=== PATIENT | female | born 1960 | race Caucasian/White ===

== ENCOUNTER 2018-10-24 15:20 | Outpatient (REF) | payer MEDICAID, SELFPAY ==
--- NOTE | 2018-10-24 10:30 | PAPFT_PTH ---
PATIENT: Niharika Corea LOC: [facility] U#:[id number] AGE/SX: 58/F ROOM: RE10/24/[address]: Nino Santos MD : [id number] BED: DIS: 10/24/2018 SPEC #: [id number] RECD: 10/25/18 12:49 STATUS: PERICO REVlad #: [id number] AYAZ: 10/24/18 10:[address]: Nino Santos DEPT: [facility] Cytology RECD BY: Dee Dunham Tissues: 1 - CX/ENDOCX FOR PAP SMEARS Procedures: PAP THIN PREP/UVM Screening HPV DNA PROBE Comments: [id number]
== END 2018-10-24 15:40 ==
LOC: LBN 15:20
PROVIDERS: PCP Family Medicine; Visit Provider Family Medicine
DX: Z12.4 Encounter for screening for malignant neoplasm of cervix (principal); Z11.51 Encounter for screening for human papillomavirus (HPV)
CPT/HCPCS: 88142; 87624

== ENCOUNTER 2018-11-08 00:37 | Outpatient (CLI) | payer MEDICAID, SELFPAY ==
--- NOTE | 2018-11-08 07:30 | DI.MAMMO_ITS ---
SYMPTOM/DIAGNOSIS: SCREENING Z12.31 MAMMOGRAM Mammograms were interpreted according to the usual protocol including computer analysis with CAD system, tomosynthesis and C view imaging. The breasts are radiodense. There is no evidence of a mass or suspicious calcification. There has been no significant interval change when compared with the previous. SUMMARY: Category 1 examination. Breast density Category A. MQSA ASSESSMENT OF FINDINGS: Negative. Category 1. Patient will receive a letter notifying them of these results. BI-RAD category A. The breasts are almost entirely fatty.
[2018-11-08 08:20] LABS: HCT 38.5 % (36.0-46.0); HGB 12.8 g/dL (12.0-15.5); Mean Corp. HGB Concentration 33.2 g/dL (32.0-36.0); Mean Corpuscular Hemoglobin 30.8 pg (27.0-33.0); Mean Corpuscular Volume 92.5 fL (80-95); Mean Platelet Volume 9.6 fL (8.0-11.0); Platelet Count 163 x1000/uL (130-400); RBC 4.16 m/cumm (4.00-5.20); RBC Distribution Width 14.9 % (11.7-14.6); White Blood Cell Count 4.77 k/cumm (4.4-10.8)
[2018-11-08 09:44] LABS: ALT 31 U/L (12-78); AST 22 U/L (15-37); Albumin 3.9 g/dL (3.4-5.0); Alkaline Phosphatase 125 U/L (46-116); Anion Gap 8.2 mmol/L (3-11); BUN 15 mg/dL (7-18); Bilirubin, Total 0.7 mg/dL (0.2-1.0); CO2 26.8 mmol/L (21.0-32.0); CREATININE 0.63 mg/dL (0.55-1.02); Calcium 8.5 mg/dL (8.5-10.1); Chloride 105 mmol/L (98-107); Glucose 102 mg/dL (70-100); Potassium 4.2 mmol/L (3.5-5.1); Sodium 140 mmol/L (136-145); Total Protein 6.9 g/dL (6.4-8.2)
== END 2018-11-08 00:57 ==
PROVIDERS: PCP Family Medicine; Visit Provider Family Medicine
DX: Z12.31 Encounter for screening mammogram for malignant neoplasm of breast (principal); Z01.818 Encounter for other preprocedural examination; Z00.00 Encounter for general adult medical examination without abnormal findings
CPT/HCPCS: 36415; 77063; 77067; 80053; 85027

== ENCOUNTER 2018-12-07 07:09 | Day surgery (SDC) | payer MEDICAID, SELFPAY ==
[2018-12-07 07:20] VITALS: BP 128/88; PULSE 91; RESP 18; TEMP 36; O2SAT 97
[2018-12-07 07:52] VITALS: BP 128/88; PULSE 91; RESP 18; TEMP 36; O2SAT 97
[2018-12-07] MEDS: Lactated Ringers 1,000 ML 80 ML IV (08:03)
--- NOTE | 2018-12-07 08:49 | W.PM.DSUDISC ---
Discharge Plan Disposition Patient Disposition: HOME Condition: Good Discharge Details Attending Provider: Sandra Foley Home Meds and New Rx's Prescriptions: Continued metoprolol tartrate 25 MG tablet 25 mg PO BID Qty: 180 RF: 4 trazodone 50 mg tablet 25 - 50 mg PO HS PRN (Reason: insomnia) Qty: 60 RF: 11 aspirin [Aspir-81] 81 MG tablet,delayed release (DR/EC) 81 mg PO DAILY Qty: 90 RF: 0 Women's Daily Formula 1 EACH tablet 1 ea PO DAILY RF: 0 Discontinued polyethylene glycol 3350 17 gram/dose powder 238 g PO ONCE Qty: 238 RF: 0 bisacodyl [Dulcolax (bisacodyl)] 5 mg tablet,delayed release (DR/EC) 5 mg PO ONCE Qty: 4 RF: 0 Discharge Instructions Additional Instructions: Your colonoscopy showed a few scattered diverticular pockets No polyps were found Plan for a follow up colonoscopy in 5 years due to family history Activity:: Activity as Tolerated Diet:: As Tolerated Discharge Orders Discharge Orders: Discharge Order (Routine); Ordered 12/07/18 Ordered By: Sandra Foley DS: Diagnosis Discharge Diagnosis (1) Diverticulosis: Start date: 12/07/18 Start time: 08:50 Status: Acute
[2018-12-07 09:19] VITALS: BP 105/67; PULSE 74; RESP 16; TEMP 36; O2SAT 99
--- NOTE | 2018-12-07 11:13 | COLE_ITS ---
DATE OF PROCEDURE: December 07, 2018 PREOPERATIVE DIAGNOSIS: Family history of colon cancer. POSTOPERATIVE DIAGNOSIS: Mild diverticulosis. PROCEDURE: Colonoscopy. SURGEON: Sandra Foley M.D. ANESTHESIA: General. INDICATIONS: This is a 58-year-old woman whose brother was treated for rectal cancer. Her last colo noscopy in 2013 showed diverticulosis. She is asymptomatic. PROCEDURE: The patient was placed in the left Mckenna' position. Propofol was titrated to sedation. D igital rectal examination revealed no abnormalities. The scope was advanced to the cecum without dif ficulty. Her prep was excellent. The ileum was briefly intubated and was normal. The scope was slo wly withdrawn with no abnormalities seen within the ascending, transverse or descending colon. The a nastomosis was visualized and was widely patent. There were a few scattered pockets of diverticulosi s proximal to this, but very minimal change, as she is status post sigmoid resection. The rectum was normal, including on retroflex view. She tolerated the procedure well and was stable to recovery. With her family history of rectal cancer, she will need a follow-up colonoscopy again in five years. cc: Nino Santos M.D.
== END 2018-12-07 09:55 | disposition home or self-care (01) ==
PROVIDERS: Visit Provider Surgery
PROC: 0DJD8ZZ Inspection of Lower Intestinal Tract, Via Natural or Artificial Opening Endoscopic (ICD-10-PCS; CPT 45378; principal; 2018-12-07 08:30)
DX: Z12.11 Encounter for screening for malignant neoplasm of colon (principal); K57.30 Diverticulosis of large intestine without perforation or abscess without bleeding; Z90.49 Acquired absence of other specified parts of digestive tract; Z80.0 Family history of malignant neoplasm of digestive organs
CPT/HCPCS: 45378

== ENCOUNTER 2019-04-24 13:43 | Outpatient (CLI) | payer MEDICAID, SELFPAY ==
--- NOTE | 2019-04-24 14:07 | DI.RAD_ITS ---
EXAM: XR STANDING ALIGNMENT CLINICAL HISTORY: left knee DJD; pre-operative planning COMPARISON: No exams were available for comparison FINDINGS: Views of the lower extremities were obtained for standing alignment and leg length determination. The re are mild degenerative changes of both hips. There are moderate to severe degenerative changes of the medial tibiofemoral joints bilaterally. 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
== END 2019-04-24 14:03 ==
PROVIDERS: PCP Family Medicine; Visit Provider Physician Assistant
DX: M25.562 Pain in left knee (principal); M17.0 Bilateral primary osteoarthritis of knee; M16.0 Bilateral primary osteoarthritis of hip
CPT/HCPCS: 77073

== ENCOUNTER 2019-04-24 13:58 | Outpatient (CLI) | payer MEDICAID, SELFPAY ==
--- NOTE | 2019-04-24 13:20 | W.PREOPHP ---
Assessment and Plan Assessment and plan (1) Primary osteoarthritis of left knee: Status: Chronic Assessment and plan: Plan: Standing alignment films were ordered for pre-operative planning. Educated patient on surgery covering surgical technique, recovery process, benefits and risks including but not limited to risk of infection, blood clot, damage to soft tissue/blood vessels/nerves in detail. After discussion patient gives verbal understanding of risks and elects to proceed with scheduling surgery. Patient had opportunity to have questions answered to their satisfaction. They will contact office if issues arise. Patient will continue to be scheduled for left TKA with Dr. Krishnan. History of Present Illness Narrative: Ms. Corea is a 59-year-old female who presents to clinic for pre-operative exam for scheduled left TKA. Patient has been a longtime patient of Dr. Bueno; she is status post left knee arthroscopy with partial meniscectomy in September 2015. Since that time patient's left knee pain has been treated with Synvisc as well as Depo-Medrol injections. Patient reports initially Synvisc injections prior to get relief but more recently were unable to provide any symptomatic improvement. Patient was then transition to steroid injections every 3 months. Patient reports injections typically help for about 2-1/2 months. Unfortunately, patient continues to have pain interferes with her activity. She describes pain as intermittent discomfort located along the lateral and medial aspect of her knee as well as beneath her patella. Pain is aggravated with prolonged weight bearing activity including standing, ascending as well as descending stairs. In addition to pain she reports stiffness and a clicking sensation within the knee. Patient denies any recent giving out, numbness or tingling. Denies any recent falls or injury. 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 Pertinent Surgical Information Patient reports she is blood type O-. Denies past medical history of: Hypertension, stroke, recent cardiac issues, angina, asthma, COPD, sleep apnea, renal issues, liver issues, hepatitis, gastrointestinal ulcers, hyperlipidemia, bleeding disorders, seizures, migraines, anxiety, depression, diabetes, autoimmune disorders, thyroid issues. Denies prior complications from surgery or anesthesia. Review of Systems Constitutional Constitutional: Denies fever(s), Denies frequent falls and Denies headache(s) Eyes Eyes: Reports change in vision (recent vision change in her right eye; has seen [place] after this change) ENT Ears, Nose, Mouth, and Throat: Denies dizziness, Denies ear discharge, Denies headache(s), Denies epistaxis, Denies nasal discharge and Denies sore throat Cardiovascular Cardiovascular: Denies chest pain, Denies rapid heart rate, Denies irregular heart rhythm, Denies palpitations, Denies dyspnea, Denies dyspnea on exertion, Denies orthopnea, Denies paroxysmal nocturnal dyspnea and Denies slow heart rate Respiratory Respiratory: Denies cough, Denies dyspnea, Denies dyspnea on exertion and Denies wheezing Gastrointestinal Gastrointestinal: Denies abdominal pain, Denies melena, Denies hematochezia, Denies constipation, Denies diarrhea, Denies nausea and Denies vomiting Genitourinary Genitourinary: Denies hematuria, Denies dysuria and Denies urinary urgency Musculoskeletal Musculoskeletal: Reports as per HPI, Denies numbness and Denies tingling Neurologic Neurologic: Denies dizziness, Denies frequent falls, Denies headache(s), Denies numbness and Denies tingling Psychiatric Psychiatric: Denies anxiety and Denies depression Endocrine Endocrine: Denies palpitations Allergic/Immunologic Allergic/Immunologic: Denies wheezing [facility] Medical History (Updated 04/24/19 @ 13:28 by Merline Dawn) Chest pain (Resolved 04/19/13) [facility] 04/10 palpitations 06/26/13; [facility]' NEG STRESS TEST Chest pressure (Resolved) Diverticulitis large intestine w/o perforation or abscess w/bleeding (Acute 04/05/11) 04/08 RECURRENT, SIGMOID RESECTION Diverticulosis (Chronic) Family history of breast cancer in sister (Inactive 10/24/17) Family history of colon cancer (Inactive 06/27/14) brother, rectal cancer in his 50's Primary osteoarthritis of left knee (Chronic) Qcyvr-Pujkbwool-Kcygt pattern (Acute) Ablation 1991 Surgical History (Updated 04/24/19 @ 13:28 by Merline Dawn) Appendectomy Colectomy (04/05/11) H/O arthroscopy of left knee (Acute) History of bilateral ligation of fallopian tubes (Inactive) Ligation of fallopian tube Sigmoidoscopy (04/05/11) STRESS TEST (06/26/13) [facility]; NEGATIVE Family History Mother , 52 Lung cancer Father No problems noted. Sister Breast cancer Cervical cancer Brother , 59 Colon cancer Maternal Grandfather , 80+ TB (tuberculosis) Lung cancer Paternal Grandfather No problems noted. Maternal Grandmother , 80+ Diabetes Cancer Paternal Grandmother Lung cancer Son No problems noted. Son No problems noted. Son No problems noted. 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 - [employer] Pets and animals: Yes Pets and animals: dog(s) Sexually active: Yes Do you think of yourself as: straight/heterosexual Current gender identity: female Other: - Francisco J What is your relationship status?: How often do you talk on the phone with friends or family?: three or more times per week How often do you get together with friends or relatives?: three or more times per week How often do you attend jew or gnosticist services?: 4 or more times per year Do you belong to any clubs or organized social groups?: yes Panel score (0-1 are the most socially isolated patients): 4 What type of physical activity do you participate in: walking Duration: 15-30 minutes/day Frequency: 1-2 times per week Elizabeth/Gnosticism: Jehovah'S Witness Special elizabeth needs: No Seatbelt use: always Helmet use: Yes Helmet use: always Drive intox or ride w/intox sanitation truck driver: No Do you feel safe at home: Yes Do you feel safe in your relationship?: Yes Meds Home Medications and Allergies Home Medications Medication Instructions Recorded Confirmed Type trazodone 50 mg tablet 25 - 50 mg PO HS PRN #60 tab 08/28/18 04/24/19 Rx Allergies Allergy/AdvReac Type Severity Reaction Status Date / Time No Known Allergies Allergy Unverified 04/24/19 13:33 Exam Const General: cooperative and no acute distress [facility] Head: normal to inspection, normocephalic and atraumatic Ears: external ears normal General nose exam: external nose normal and no nasal discharge Face and sinus: face symmetric Mouth: oral mucosae normal, lip normal, tongue normal and moist mucous membranes Teeth and gingiva: dentition normal Throat: posterior oropharynx normal Eyes General: appearance normal, both eyes and all related structures Pupils: PERRL EOM: EOM intact bilaterally Neck Neck: trachea midline Carotids: normal carotid upstroke Lymphatic: no lymphadenopathy noted Resp Effort & Inspection: normal respiratory effort and able to speak in complete sentences Auscultation: clear to auscultation bilaterally, no rales, no rhonchi and no wheezes Cardio Heart Sounds: S1 normal, S2 normal and no murmurs Pulses: radial pulses present bilaterally GI Palpation: soft, no hepatosplenomegaly and nontender Auscultation: normal bowel sounds Skin General skin exam: no rashes or lesions noted
[2019-04-24 15:33] LABS: HCT 37.6 % (36.0-46.0); HGB 12.7 g/dL (12.0-15.5); Mean Corp. HGB Concentration 33.8 g/dL (32.0-36.0); Mean Corpuscular Hemoglobin 30.8 pg (27.0-33.0); Mean Corpuscular Volume 91.3 fL (80-95); Mean Platelet Volume 9.2 fL (8.0-11.0); Platelet Count 185 x1000/uL (130-400); RBC 4.12 m/cumm (4.00-5.20); RBC Distribution Width 14.8 % (11.7-14.6); White Blood Cell Count 5.88 k/cumm (4.4-10.8)
[2019-04-24 15:55] LABS: Anion Gap 8.1 mmol/L (3-11); BUN 14 mg/dL (7-18); CO2 27.9 mmol/L (21.0-32.0); CREATININE 0.82 mg/dL (0.55-1.02); Calcium 8.7 mg/dL (8.5-10.1); Chloride 106 mmol/L (98-107); Glucose 112 mg/dL (74-106); Potassium 3.7 mmol/L (3.5-5.1); Sodium 142 mmol/L (136-145)
== END 2019-04-24 14:18 ==
PROVIDERS: PCP Family Medicine; Visit Provider Student in an Organized Health Care Education/Training Program
DX: M25.562 Pain in left knee (principal); M17.12 Unilateral primary osteoarthritis, left knee; Z01.818 Encounter for other preprocedural examination; Z01.812 Encounter for preprocedural laboratory examination
CPT/HCPCS: 36415; 80048; 85027; NC

== ENCOUNTER 2019-05-03 08:28 | Observation (INO) | payer MEDICAID, SELFPAY ==
[2019-04-24 14:18] VITALS: BP 128/88; PULSE 88; RESP 18; TEMP 36.2; O2SAT 97
--- NOTE | 2019-04-24 18:51 | CMPROGNOTE_ITS ---
- If Service Date Differs Date of service: 04/24/19 Time of Service: 18:51 Care Management Progress Note CM met with Niharika Briones during her Pre Op appointment for her L total knee replacement that is scheduled for 05/03/[address] Krishnan. Anselmo identified that she has a lot of supportive family and friends in the community. She lives in a house with three levels, but all that she needs post op will be on the main level as she will temporarily stay in a downstairs bedroom during her recovery. 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 Anselmo is independent at baseline. Anselmo's PCP is at [facility] and she has [employer] for insurance. She does not have a FWW, which may be recommended by PT, and CM will coordinate if it is nee ded. She does not have an AD on file currently. She does not have the portal, but is aware of it and may sign up from home. Her , Francisco J will transport her to and from [facility] for this surgery. CM will continue to follow post operatively.
[2019-05-03] VITALS (19 sets, daily range): BP systolic 106–145; BP diastolic 57–83; PULSE 62–89; RESP 12–19; TEMP 36.2–37.1; O2SAT 96–98
[2019-05-03] MEDS: Acetaminophen 500 MG TAB 1000 MG PO ×3 (09:04→21:07)
[2019-05-03] MEDS: Celecoxib 200 MG CAP 400 MG PO (09:04)
[2019-05-03] MEDS: Gabapentin 300 MG CAP PO (09:04)
[2019-05-03] MEDS: Lactated Ringers 1,000 ML 80 ML IV ×2 (09:04→15:25)
[2019-05-03] MEDS: ceFAZolin 2 GM/50 ML BAG IVPB (09:55)
[2019-05-03] MEDS: Ketorolac 30 MG/ML VIAL (11:07)
[2019-05-03] MEDS: Normal Saline 20 ML VIAL (11:07)
[2019-05-03] MEDS: Bupivacaine 0.25% Pres-Free 30 ML VIAL (11:07)
--- NOTE | 2019-05-03 14:55 | ROE_ITS ---
Date of service: 05/03/19 Time of Service: 12:55 Operative Note Operative Note DATE OF PROCEDURE: 05/03/19 PRE-OP DIAGNOSIS: Left Knee Osteoarthritis POST-OP DIAGNOSIS: same PROCEDURE: Left Total Knee Replacement SURGEON: Miguel Krishnan BI[employer]IESEL PRODUCT DEVELOPMENT MANAGER: Merline Dawn ANESTHESIA: regional and spinal ESTIMATED BLOOD LOSS: 300 PATHOLOGY: none sent TOURNIQUET TIME: 0 COMPLICATIONS: None Patient was transported to: PACU Patient's condition: stable Implants: 1. Depuy Attune Cementless Cruciate Retaining Femoral Component, Size 6 narrow 2. Depuy Attune Cementless Rotating Platform Tibial Component, Size 5 3. Depuy Attune 6x8mm CR/RP Poly 4. Depuy Attune Patellar Component, Size 35mm Indications: I have seen Niharika in clinic for symptoms of left knee arthritis, confirmed with radiographic findings. She has exhausted nonoperative methods and was having significant limitations in daily function and desired better function and less pain. I discussed the technical details of a knee replacement. I explained the risks of the procedure to include, but not limited to, bleeding, infection, pain, stiffness, fracture, damage to nerves and vessels, damage to muscles and tendons, loosening, need for repeat procedure, blood clot and cardiopulmonary demise. Despite these risks, Niharika elected to proceed. Findings: There was significant signs of arthritis throughout the knee. All three compartments were involved with some changes over the lateral femur and mostly over the medial tibia. Procedure Description: Niharika was greeted in the preoperative holding area where the correct side was identified and marked. The consent was reviewed with the patient and signed. The history and physical was updated. All questions were answered. Preoperative mediacations were administered: Acetaminophen 1000mg, Celebrex 400mg, and Gabapentin 300mg. An adductor canal block was then administered by the anesthesia team in the PACU. She was taken back to the operating room. A spinal anesthestic was then administered. The patient was placed into the supine position on the operating room table. A nonsterile tourniquet was placed high onto the leg but not used. Posts were placed for positioning during the procedure. All bony prominences were well padded. Prophylactic antibiotics in the form of Cefazolin were administered. 1g of Tranxemic Acid was given intravenously within 30 minutes of incision. The left leg was then prepped with Chloraprep and draped in a standard fashion with impervious stockinette and extremity drape. A second prep with Chloraprep was performed prior to placing Ioband. A timeout to confirm correct identity, side and site, procedure, allergies, anesthesia, and medical concerns was performed. With the knee in some flexion, a midline incision was made overlying the knee. Full thickness skin flaps were raised once the extensor mechanism was encountered. These were raised medially and laterally. Any bleeding was controlled with electrocautery. Once the extensor mechanism was fully exposed, a medial parapatellar arthrotomy was performed in a flexed position. All bleeding from the arthrotomy and the geniculate arteries was coagulated. A medial subperiosteal peel was performed with electrocautery to the midcoronal plane. The fat pad was removed while keeping the patellar tendon protected. The anterior distal femur synovium was r emoved for later visualization. The ACL was resected and the anterior horn of the lateral meniscus was transected. The knee was then flexed with the patella everted. Large osteophytes from the tibia were removed. Large osteophytes from the femur were removed. Using a step drill, and based on preoperative templating, the femoral canal was entered. This was done with a step drill without any difficulty. The intramedullary distal femoral cut guide was inserted, set to a 5 degree valgus cut and 9mm cut thickness. There was some hypoplasia of the lateral femoral condyle and any remnant cartilage of the medial femoral condyle was removed for appropriate thickness. The distal femoral cut guide was then held in position and pinned. With the soft tissues protected, the distal cut was performed. This was passed over a few times to ensure a planar cut. I then turned attention to the tibia. The extramedullary guide was placed onto the leg. The distal aspect was slid medial to adjust for position of center of ankle and stay in line with shaft of the tibia. Approximately 3-5 degrees of posterior slope was kept in the proximal cutting guide. The center of the guide was aligned with the PCL. The stylus was used to assess cut thickness. The medial side, most involved side, was set for a 4mm cut. This was then held in position and pinned into place with 2 additional pins and a cross pin for stability. The medial and lateral collateral ligaments were protected and the cut was performed. With this completed, it was assessed and noted to be of appropriate dimensions. The guide was removed. A spacer block was inserted and the knee was brought into extension. The 7mm spacer block provided full extension, without hyperextension and with stability of both the medial and lateral collateral ligaments was assessed. The pins from the femur and the tibia were then removed. The distal femur was then sized. The anterior stylus was placed onto the lateral ridge of the anterior femur. This indicated a size 6 femur. The external rotation of the guide was adjusted to 5 degrees to match the epicondylar axis, perpendicular to Bill?s line. The 4-in-1 cutting guide was the placed. The posterior medial femur cut was evaluated and appeared of good thickness. The spacer block was inserted underneath the cutting guide and stability was confirmed in 90 degrees of flexion. An earle wing was used to confirm appropriate position of the anterior cut to avoid notching. This cutting guide was ensured to be flush on the cut surface and then pinned into place with headed pins. While protecting the soft tissues, quad tendon, and collateral ligaments, the anterior and posterior cuts were performed with a saw. The central two pins were removed and the posterior and anterior chamfers were cut next. The notch-cutting guide was placed. This was pinned to lateralize the femoral component as much as possible while keeping it flush on the cut surface. This w as then pinned into position. A reciprocating saw was used to make the notch cut. A rasp smoothed the cut surfaces. A trial posterior stabilized femoral component was then inserted, impacted down to the cut surfaces, and the lug holes were drilled. A provisional trial tibial component was placed and the knee was brought through range of motion. There was noted to be excellent extension and flexion. There was no significant instability. The patella was tracking without thumbs. The tibial cut surface was fully exposed. The medial and lateral menisci were removed. The tibia was then sized as a 5. The tibia had been previously marked during trialing to correspond to the center of the tibial component to help with rotation. The trial was aligned to this evelio, approximately rotated to the medial 1/3rd of the tibial tubercle. The trial was pinned into place. The tibia was prepared with a reamer and a punch and four drilled post holes. The knee was then brought into extension and the patella was measured as 26mm. Using the patellar clamp and cut guide, this was resected to a flat surface with at least 13mm of thickness remaining. The size 35 patella fit the best. This was oriented and then clamped into position. The lugs were drilled. The trial components were removed. The final components, except for the polyethylene were opened on the back table. The periosteal and capsular tissues, especially posteriorly, around the knee were then systematically injected with a periarticular cocktail consisting of 50cc 0.25% Marcaine, 30mg Ketorolac, 20cc of Exparal and 50cc of injectable saline. The knee was thoroughly irrigated with a pulse lavage and dried. On the back table, with the implants opened, the cement was mixed for the patella. 1 batch of antibiotic laden cement was prepared with vacuum assistance. After the cement was ready it was placed on the patella and the patellar button was clamped into place. Excess cement was removed. The proximal tibia was then exposed. The cementless component was lined up to the lug holes to make sure it was in appropriate positioning. He was then malleted into position. Both medial lateral aspects of the bone, implant interface were evaluated and it was noted to be down against bone. The femur was then lined up with the lug holes and likewise malleted in position. All surfaces were down against bone. While the cement of the patella finished hardening, the knee was irrigated with Irrisept chlorhexadine solution. It was allowed to sit in the knee for 3 minutes. After the cement had finally cured, approximately 15min, the clamp was removed from the patella and the knee was taken through range of motion. A size 8mm polyethylene component provided the best range of motion and stability with less than 2mm gapping with medial and lateral stress and full extension without significant hyperextension. The patella was tracking with a no-thumbs technique. Past 120 degrees there was a tendency for spin out but there is also thigh Impingement at this level likely pushing the tibia anteriorly. The trial poly was removed and once again the knee was checked for any loose, excess, or errant cement. The poly component was then inserted after cleaning and drying the tibial tray. The capsule was then reapproximated with a No. 1 Vicryl at multiple locations. The capsule was finally closed with a No. 2 Stratafix, barbed suture. The tourniquet was then released and the arthrotomy appeared watertight without significant bleeding. The second dosing of 1g TXA was started. Deep tissues w ere then reapproximated with 0 Vicryl and 2-0 Vicryl. The skin was closed with a running 3-0 Monocryl in a subcuticular fashion. This was reinforced with skin glue. A Mepilex silver dressing was applied along with a [id number] MAXIMILIANO wrap. A CryoCuff was applied. Anselmo was transferred to the hospital bed without difficulty an suffering no apparent complication. She has a good prognosis. Physical therapy will start today and without restrictions, weight-bearing as tolerated. Aspirin 81mg BID will be used for DVT prophylaxis.
--- NOTE | 2019-05-03 16:10 | IN_ITS ---
Date of service: 05/03/19 Time of Service: 14:25 PT Notes Visit Reasons: DJD (L) KNEE Physical Therapy Inpatient Initial Evaluation Date: 05/03/2019 Referring Doctor: Miguel Krishnan MD PT Orders: PT CONSULT: Status post Ortho surgery. Status post left TKA Precautions: Fall. Standard. WBAT on left LE. Patient is a 59-year-old female Patient Profile/Admitting Diagnosis: Patient is a 59-year-old female who is status post left total knee arthroplasty on postoperative day 0 due to primary osteoarthritis of left knee. PMHX: Medical History (Updated 04/24/19 @ 13:28 by Merline Dawn) Chest pain (Resolved 04/19/13), Chest pressure Diverticulitis large intestine w/o perforation or abscess w/bleeding (Acute 04/05/11) 04/08 RECURRENT, SIGMOID RESECTION Diverticulosis (Chronic) Family history of breast cancer in sister (Inactive 10/24/17) Family history of colon cancer (Inactive 06/27/14) brother, rectal cancer in his 50's Primary osteoarthritis of left knee (Chronic) Vygwm-Qrbsoquuv-Inqso pattern (Acute), Ablation 1991 Surgical History (Updated 04/24/19 @ 13:28 by Merline Dawn) Appendectomy Colectomy (04/05/11) H/O arthroscopy of left knee (Acute) History of bilateral ligation of fallopian tubes (Inactive) Ligation of fallopian tube Sigmoidoscopy (04/05/11) STRESS TEST (06/26/13) [facility]; NEGATIVE Social History/Home Situation: Patient lives with and in a 1 floor house with 4 steps to enter and with bilateral rails. She is independent with all aspects of ADLs without the need for an assistive ambulatory device nor adaptive. 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 Equipment Owned/DME: Has front wheeled walker that she can borrow from her mother Subjective: Patient is agreeable to a PT consult. Patient states that she cannot left nor move her left lower extremity as it feels heavy. she reports not being able to control her left leg stating that she feels tingling sensation all over. She states that her bottom felt heavy as well from the spinal anesthesia. She is excited about getting out of bed and walking despite complaints with sensation. Objective: General Observation: Patient is seen resting in bed. Cryo/Cuff on left knee. IV in right UE. TEDS on right leg. Mother, , and gjsfugo-[id number] present in room throughout PT consult. Mental Status: Alert and oriented x4 Pain: 0/10 ROM: Right Upper Extremity: Shoulder Flexion WFL. Shoulder abduction WFL. Elbow flexion WFL. Wrist flexion WFL. Opening and closing of hand WFL. Left Upper Extremity: Shoulder Flexion WFL. Shoulder abduction WFL. Elbow flexion WFL. Wrist flexion WFL. Opening and closing of hand WFL. Right Lower Extremity: Hip flexion WFL. Hip abduction WFL. Knee flexion WFL. Ankle dorsiflexion WFL. Ankle plantarflexion WFL. Left Lower Extremity: Hip flexion WFL. Hip abduction WFL. Knee flexion -15 to 110 degrees. Knee extension -15 degrees. Ankle dorsiflexion WFL. Ankle plantarflexion WFL. Strength: Right Upper Extremity: Shoulder flexors 5/5. Shoulder abductors 5/5. Elbow flexors 5/5. Elbow extensors 5/5. Wireless Cellular Technician strong. Left Upper Extremity: Shoulder flexors 5/5. Shoulder abductors 5/5. Elbow flexors 5/5. Elbow extensors 5/5. Wireless Cellular Technician strong. Right Lower Extremity: Hip flexors 5/5. Hip abductors 5/5. Knee flexors 5/5. Knee extensors 5/5. Ankle dorsiflexors 5/5. Ankle plantarflexors 5/5. Left Lower Extremity:Hip flexors 4/5. Hip abductors 4/5. Knee flexors 3- /5. Knee extensors 3- /5. Ankle dorsiflexors 4 /5. Ankle plantarflexors 5/5. Bed Mobility/Transfers: Rolling minimal assist to left LE Supine to sit minimal assist to left LE Sit to supine minimal assist to left LE Sit to stand minimal assist of 2 Stand to sit minimal assist of 2 Bed to chair minimal assist of 2 Chair to bed minimal assist of 2 Gait: Patient tolerated 3 steps forward and 3 steps backwards as well as to sidesteps to the left using a front wheeled walker with minimal assist of PT and standby assist of nurse. Moderate verbal cues given for correct gait pattern as patient does not have full control of left limb advancement due to spinal anesthesia and nerve block. Balance: Static Sitting: Normal Dynamic Sitting: Normal Static Standing: Fair Dynamic Standing: Fair Special Tests: Mobility Limitations Standardized Measure [facility] AM-PAC 6 clicks Basic Mobility Inpatient Short Form: Raw Score: 1173% deficit CMS Score: 73% deficit Informed Consent/Education: Patient instructed in purpose of PT consult and plan of care. Assessment: Patient is a 59-year-old female who is status post left total knee arthroplasty on postoperative day 0 due to primary osteoarthritis of left knee. Patient has a premorbid independent level. Did not use any assistive ambulatory devices. He has a supportive and family. Her prognosis for regaining prior level of function is good. Patient presents with clinical signs and symptoms consistent with current/admitting diagnoses that have resulted to mobility limitations, gait instability, generalized weakness, and impairment of motor control as demonstrated by the following impairment level findings: 1. Decreased strength to LLE major muscle groups 2. Impaired standing balance 3. Impaired activity tolerance 4. Limitation of joint range of motion in left knee Impairments are contributing to the following functional limitations: 1. Dependent bed mobility skills 2. Increased dependence with transfers 3. Inability to safely ambulate without assistive device and physical assistance 4. Increase completion time for mobility ADL performance 5. Increased fall risk 6. Inability to negotiate steps alone safely Patient is assessed as a 81214 moderate complexity based on the following: History: Patient is a 59-year-old female who is status post left total knee arthroplasty on postoperative day 0 due to primary osteoarthritis of left knee. Examination: Demonstrable impairment in strength, balance, and range of motion with underlying impairments and functional limitations as documented above Presentation:Evolving Decision Makin moderate complexity Goals: Goals X1 week 1. Supine-Sit independent 2. Sit-Supine independent 3. Sit-Stand independent 4. Stand-Sit independent 5. Bed-Chair independent 6. Chair-Bed independent 7. Independent gait on level surface with use of least restrictive device for at least 300 feet without report of pain nor dyspnea 8. Independent stair negotiation while holding onto bilateral rails for at least 10 steps without report of pain nor dyspnea 9. Independent with home exercise program 10. Good static and dynamic standing balance/tolerance Plan of Care/Treatment Plan: 1-2x/day, 7 days/week x 1 week. Plan of care has been reviewed with the GEOGRAPHIC INFORMATION SYSTEMS ANALYST providing the service under Physical Therapy direction. Initiate Physical Therapy intervention for strengthening, bed mobility, transfers, gait, stairs, balance training, use of assistive device. DISCHARGE RECOMMENDATIONS: May benefit from skilled physical therapy services according to orthopedic surgeon's timeline recommendations. Patient will be educated and trained on home exercise program per TKA exercise protocol in preparation for outpatient physical therapy services. TREATMENT CODE/TIME: 32285 x 25 minutes beginning at 14:25 PM Thank you very much for this referral. Marlena Zacarias PT, DPT, CLT [facility] [place], [place]
[2019-05-03] MEDS: ceFAZolin 1 GM/50 ML BAG IVPB (18:19)
[2019-05-03] MEDS: Aspirin E.C. 81 MG TABEC PO (21:07)
[2019-05-03] MEDS: Celecoxib 200 MG CAP PO (21:07)
[2019-05-03] MEDS: Gabapentin 300 MG CAP (21:08)
[2019-05-03] MEDS: Docusate Sodium 100 MG CAP PO (21:13)
[2019-05-03] MEDS: traZODone 50 MG TAB PO (22:39)
[2019-05-04] MEDS: ceFAZolin 1 GM/50 ML BAG IVPB ×2 (01:27→10:05)
[2019-05-04] MEDS: oxyCODONE 5 MG TAB PO ×2 (03:40→10:09)
[2019-05-04] MEDS: Lactated Ringers 1,000 ML 80 ML IV (03:43)
[2019-05-04 04:45] VITALS: BP 105/71; PULSE 71; RESP 18; TEMP 36.3; O2SAT 96
[2019-05-04] MEDS: HYDROmorphone 2 MG/ML VIAL 0.5 MG IVP (04:54)
[2019-05-04] MEDS: Acetaminophen 500 MG TAB 1000 MG PO (07:46)
[2019-05-04] MEDS: Pantoprazole 40 MG TABCR PO (07:47)
[2019-05-04] MEDS: Aspirin E.C. 81 MG TABEC PO (07:47)
[2019-05-04] MEDS: Celecoxib 200 MG CAP PO (07:48)
[2019-05-04 08:45] VITALS: BP 100/67; PULSE 86; RESP 18; TEMP 36.2; O2SAT 98
--- NOTE | 2019-05-04 09:28 | W.PM.DS.N ---
Date of service: 05/04/19 Time of Service: 09:28 DS: Diagnosis Discharge Diagnosis (1) Primary osteoarthritis of left knee: Status: Chronic Discharge Plan Disposition Patient Disposition: HOME Condition: Good Discharge Details Reason For Visit: DJD (L) KNEE Admit Date/Time: 05/03/19 08:28 Admit Provider: Miguel Krishnan Attending Provider: Miguel Krishnan Primary Care Provider: Nino Santos [facility] Hospital Course: Patient was admitted to the medical/surgical floor following the procedure. It was tolerated well without any notable medical, surgical, or anesthetic complications. Mobilization began postoperatively. The whitman catheter was removed and voiding spontaneously. Vitals were stable. Physical therapy worked with the patient and was cleared for discharge home. No acute medical issues. Home Meds and New Rx's Prescriptions: New aspirin 81 mg tablet,delayed release (DR/EC) 81 mg PO BID Qty: 60 RF: 0 acetaminophen 500 mg tablet 1,000 mg PO Q8H PRN (Reason: pain) Qty: 90 RF: 3 pantoprazole 40 mg tablet,delayed release (DR/EC) 40 mg PO DAILY Qty: 30 RF: 0 gabapentin 300 mg capsule 300 mg PO QHS Qty: 7 RF: 0 ibuprofen 600 mg tablet 600 mg PO TID PRN (Reason: pain) Qty: 90 RF: 3 oxycodone 5 mg tablet 5 mg PO Q4H Qty: 18 RF: 0 Continued trazodone 50 mg tablet 25 - 50 mg PO HS PRN (Reason: insomnia) Qty: 60 RF: 11 Discharge Instructions Additional Instructions: Dr. Krishnan?s Total Knee Discharge Instructions Activity: The most important activity is to walk. You should try to take short walks a few times a day. It is important that when resting you work on keeping the knee straight. Avoid putting a pillow behind the knee as this will encourage flexion. Work on range of motion exercises as provided by Physical Therapy. - Start outpatient physical therapy within 2 weeks. - You should wear the GORDO hose on both legs for 2 weeks. Dressing: Keep the surgical dressing in place for at least one week. After the first week it may be removed and replace with light gauze and tape or nothing. It may get wet after 3 days but avoid soaking the dressing. If it gets wet, just lightly pat dry. Medications: - You should take Tylenol and anti-inflammatory Ibuprofen as your primary pain control medications - You have been prescribed a stronger pain medication Oxycodone for breakthrough pain, take as needed as prescribed. - You have also been prescribed a stomach acid reduction agent Pantoprozole to help reduce stomach acid and reflux. - You will be taking Aspirin 81mg twice a day for DVT prevention unless instructed otherwise. - If you have constipation you should take Colace or Miralax (both [id number]-vim-[id number]). It takes most people 3-4 days to have a bowel movement. Follow-up: 2 weeks Referrals: Miguel Krishnan MD [ [facility] STAFF PHYSICIAN] - [facility] [Provider Group] (s/p L TKA) Activity:: Activity as Tolerated Equipment/Supplies:: No Equipment Needed Diet:: As Tolerated Discharge Orders Discharge Orders: Discharge Order (Routine); Ordered 05/04/19 Ordered By: Miguel Krishnan DS: Summary Status at Discharge Functional status at discharge: uses cane/walker Overall status at discharge: patient is progressing back to baseline Mental Status: mental status grossly normal Speech and Movement: speech and movement normal Mood: congruent mood Affect: normal affect Exam Psych Mental Status: mental status grossly normal Speech and Movement: speech and movement normal Mood: congruent mood Affect: normal affect DS: Data Vitals/I&O Vitals and I&O: Vital Signs Temperature 36.3 C L 05/04/19 04:45 Temperature Source Tympanic 05/04/19 04:45 Pulse 71 05/04/19 04:45 Pulse Rhythm Regular 05/04/19 01:20 Respiratory Rate 18 05/04/19 04:45 Respiratory Effort Non-Labored 05/04/19 01:20 Respiratory Depth Normal 05/04/19 01:20 Respiratory Pattern Normal 05/04/19 01:20 Blood Pressure 105/71 05/04/19 04:45 Pulse Oximetry 96 05/04/19 04:45 Respiratory End-tidal CO2 33 05/03/19 12:40 Oxygen Delivery Method Room Air 05/04/19 04:45 Oxygen Flow Rate 0 05/04/19 04:45 Pain Level 7 05/04/19 04:54 Comment 05/03/19 15:00 Intake & Output 05/03/19 05/03/19 05/04/19 11:59 23:59 11:59 Intake Total 770 / 1609.333 839.333 / 9911.506 7090 / 1334 Output Total 700 / 2050 1350 / 2050 700 / 700 Balance 70 / -440.667 -510.667 / -440.667 634 / 634 Weight 100.6 kg 100.6 kg Intake: IV 770 / 1069.333 299.333 / 1069.333 984 / 984 Oral 540 / 540 350 / 350 Output: Urine 400 / 1750 1350 / 1750 700 / 700 Estimated Blood Loss 300 / 300 Other: Urine Color Yellow Yellow Yellow Urine Appearance Clear Clear Clear Emesis Description None [facility] Medical History Chest pain (Resolved 04/19/13) [facility] 04/10 palpitations 06/26/13; [facility]G STRESS TEST Chest pressure (Resolved) Diverticulitis large intestine w/o perforation or abscess w/bleeding (Acute 04/05/11) 04/08 RECURRENT, SIGMOID RESECTION Diverticulosis (Chronic) Family history of breast cancer in sister (Inactive 10/24/17) Family history of colon cancer (Inactive 06/27/14) brother, rectal cancer in his 50's Primary osteoarthritis of left knee (Chronic) Qfgkx-Oraeulyvl-Dbhvj pattern (Acute) Ablation 1991 Surgical History Appendectomy Colectomy (04/05/11) H/O arthroscopy of left knee (Acute) History of bilateral ligation of fallopian tubes (Inactive) Ligation of fallopian tube Sigmoidoscopy (04/05/11) STRESS TEST (06/26/13) [facility]; NEGATIVE Family History Mother , 52 Lung cancer Father No problems noted. Sister Breast cancer Cervical cancer Brother , 59 Colon cancer Maternal Grandfather , 80+ TB (tuberculosis) Lung cancer Paternal Grandfather No problems noted. Maternal Grandmother , 80+ Diabetes Cancer Paternal Grandmother Lung cancer Son No problems noted. Son No problems noted. Son No problems noted. 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 - [employer] Pets and animals: Yes Pets and animals: dog(s) Sexually active: Yes Do you think of yourself as: straight/heterosexual Current gender identity: female Other: - Francisco J What is your relationship status?: How often do you talk on the phone with friends or family?: three or more times per week How often do you get together with friends or relatives?: three or more times per week How often do you attend muslim or mormonism services?: 4 or more times per year Do you belong to any clubs or organized social groups?: yes Panel score (0-1 are the most socially isolated patients): 4 What type of physical activity do you participate in: walking Duration: 15-30 minutes/day Frequency: 1-2 times per week Elizabeth/Shinto: Bahai Special elizabeth needs: No Seatbelt use: always Helmet use: Yes Helmet use: always Drive intox or ride w/intox special education bus driver: No Do you feel safe at home: Yes Do you feel safe in your relationship?: Yes
--- NOTE | 2019-05-04 10:54 | PDOC.CMPRO ---
Care Management Progress Note CM met with Niharika 05/03/19, and 05/04/19 reviewing information for initial assessment and discharge considerations. Niharika is independent at baseline with great family support. She is borrowing a walker upon discharge from her mother in law who had surgery within the last year. She shares no concerns at this time, CM reviews contact information for follow up if needed. CM provided Advance Directives to Niharika and her for review, Niharika reports the couple will review at home and complete with PCP or follow up with CM.
--- NOTE | 2019-05-04 11:19 | PT.INTREAT ---
Date of service: 05/04/19 Time of Service: 11:19 PT Notes Visit Reasons: DJD (L) KNEE Inpatient Physical Therapy Treatment Note [facility] Date: 05/04/2019 PRECAUTIONS: Fall, WBAT L SUBJECTIVE: Niharika reports that she is having very minimal pain, stating that she is excited to be going home today. She is agreeable to participating in PT this morning. OBJECTIVE: PAIN: Patient complained of pulling discomfort along anterior L knee BED MOBILITY/TRANSFERS Supine-sit: I with HOB flat Sit-supine: I with HOB flat Sit-stand: I Stand-sit: I GAIT Assistive Device: FWW Weight bearing: WBAT L Assist: S Distance: 200' Deviation: Step through gait pattern utilized THEREX: Patient completed a lower extremity strengthening and stabilization program, in a supine position, as per flow sheet. STAIRS: Up/down 3?4 and 2?6 using B rails and a step to pattern with supervision ASSESSMENT: Patient tolerated session well with minimal c/o pulling discomfort along anterior L knee with gait training and ther ex. SHe was able to tolerate a progression in gait distance with FWW support and supervision utilizing step through gait pattern. PLAN: As per primary PT TREATMENT CODE/TIME: 25 minutes; 47446, [id number]
[2019-05-04 11:35] VITALS: BP 108/75; PULSE 85; RESP 18; TEMP 37; O2SAT 95
--- NOTE | 2019-05-07 08:30 | INDS_ITS ---
Date of service: 05/07/19 Time of Service: 08:30 PT Notes Visit Reasons: DJD (L) KNEE Inpatient Physical Therapy Discharge Summary Dates: 05/07/2019 Dates of Service: 05/03/2019 and 05/04/2019 This is a clinical summary of care provided on the duration of dates listed above. No charge was made in the completion of this documentation. Referring Doctor: Miguel Krishnan MD PT Orders: PT CONSULT: Status post Ortho surgery. Status post left TKA Precautions: Fall. Standard. WBAT on left LE. Patient is a 59-year-old female Patient Profile/Admitting Diagnosis: Patient is a 59-year-old female who is status post left total knee arthroplasty on postoperative day 0 due to primary osteoarthritis of left knee. PMHX: Medical History (Updated 04/24/19 @ 13:28 by Merline Dawn) Chest pain (Resolved 04/19/13), Chest pressure Diverticulitis large intestine w/o perforation or abscess w/bleeding (Acute 04/05/11) 04/08 RECURRENT, SIGMOID RESECTION Diverticulosis (Chronic) Family history of breast cancer in sister (Inactive 10/24/17) Family history of colon cancer (Inactive 06/27/14) brother, rectal cancer in his 50's Primary osteoarthritis of left knee (Chronic) Ncvaa-Orkmtknhp-Xvqer pattern (Acute), Ablation 1991 Surgical History (Updated 04/24/19 @ 13:28 by Merline Dawn) Appendectomy Colectomy (04/05/11) H/O arthroscopy of left knee (Acute) History of bilateral ligation of fallopian tubes (Inactive) Ligation of fallopian tube Sigmoidoscopy (04/05/11) STRESS TEST (06/26/13) [facility]; NEGATIVE Social History/Home Situation: Patient lives with and in a 1 floor house with 4 steps to enter and with bilateral rails. She is independent with all aspects of ADLs without the need for an assistive ambulatory device nor adaptive. 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 Equipment Owned/DME: Has front wheeled walker that she can borrow from her mother Subjective: NT Objective: General Observation: NT Mental Status: NT Pain: NT ROM: Right Upper Extremity: Shoulder Flexion WFL. Shoulder abduction WFL. Elbow flexion WFL. Wrist flexion WFL. Opening and closing of hand WFL. Left Upper Extremity: Shoulder Flexion WFL. Shoulder abduction WFL. Elbow flexi on WFL. Wrist flexion WFL. Opening and closing of hand WFL. Right Lower Extremity: Hip flexion WFL. Hip abduction WFL. Knee flexion WFL. Ankle dorsiflexion WFL. Ankle plantarflexion WFL. Left Lower Extremity: Hip flexion WFL. Hip abduction WFL. Knee flexion -15 to 110 degrees. Knee extension -15 degrees. Ankle dorsiflexion WFL. Ankle plantarflexion WFL. Strength: Right Upper Extremity: Shoulder flexors 5/5. Shoulder abductors 5/5. Elbow flexors 5/5. Elbow extensors 5/5. Hydrochloric Acid Operator strong. Left Upper Extremity: Shoulder flexors 5/5. Shoulder abductors 5/5. Elbow flexors 5/5. Elbow extensors 5/5. Hydrochloric Acid Operator strong. Right Lower Extremity: Hip flexors 5/5. Hip abductors 5/5. Knee flexors 5/5. Knee extensors 5/5. Ankle dorsiflexors 5/5. Ankle plantarflexors 5/5. Left Lower Extremity:Hip flexors 4/5. Hip abductors 4/5. Knee flexors 3- /5. Knee extensors 3- /5. Ankle dorsiflexors 4 /5. Ankle plantarflexors 5/5. Bed Mobility/Transfers: Rolling independent Supine to sit independent Sit to supine independent Sit to stand independent Stand to sit independent Bed to chair independent Chair to bed independent Gait: Patient tolerated 200 feet with supervision using front wheeled walker. Patient is also able to tolerate up-and-down three 4 inch steps and two 6 inch steps while holding onto bilateral rails using step to gait pattern with supervision. Moderate verbal cues given for correct gait pattern as patient does not have full control of left limb advancement due to spinal anesthesia and nerve block. Balance: Static Sitting: Normal Dynamic Sitting: Normal Static Standing: Fair Dynamic Standing: Fair Assessment: Patient is a 59-year-old female who is status post left total knee arthroplasty on postoperative day 0 due to primary osteoarthritis of left knee. Patient has a premorbid independent level. Did not use any assistive ambulatory devices. He has a supportive and family. Her prognosis for regaining prior level of function is good. Patient demonstrated significant functional mobility gains during this episode of care Patient continues to present with clinical signs and symptoms consistent with current/admitting diagnoses that have resulted to mobility limitations, gait instability, generalized weakness, and impairment of motor control as demonstrated by the following impairment level findings: 1. Decreased strength to LLE major muscle groups 2. Impaired standing balance 3. Impaired activity tolerance 4. Limitation of joint range of motion in left knee Impairments are contributing to the following functional limitations: 1. Inability to safely ambulate without assistive device and physical assistance 2. Increase completion time for mobility ADL performance 3. Increased fall risk 4. Inability to negotiate steps alone safely Goals: Goals X1 week 1. Supine-Sit independent MET 2. Sit-Supine independent MET 3. Sit-Stand independent MET 4. Stand-Sit independent MET 5. Bed-Chair independent MET 6. Chair-Bed independent MET 7. Independent gait on level surface with use of least restrictive device for at least 300 feet without report of pain nor dyspnea NOT MET 8. Independent stair negotiation while holding onto bilateral rails for at least 10 steps without report of pain nor dyspnea NOT MET 9. Independent with home exercise program NOT MET 10. Good static and dynamic standing balance/tolerance NOT MET DISCHARGE RECOMMENDATIONS: May benefit from skilled physical therapy services according to orthopedic surgeon's timeline recommendations. Patient will be educated and trained on home exercise program per TKA exercise protocol in pr eparation for outpatient physical therapy services. TREATMENT CODE/TIME: LA. Thank you very much for this referral. Marlena Zacarias PT, DPT, CLT [facility] [place], [place]
== END 2019-05-04 12:40 | disposition home or self-care (01) ==
LOC: PDS 12:37 → MS 12:48 → PDS 13:40
PROVIDERS: Admitting Provider Student in an Organized Health Care Education/Training Program; PCP Family Medicine; Visit Provider Student in an Organized Health Care Education/Training Program
PROC: 0SRD0J9 Replacement of Left Knee Joint with Synthetic Substitute, Cemented, Open Approach (ICD-10-PCS; CPT 27447; principal; 2019-05-03 09:45)
DX: M17.12 Unilateral primary osteoarthritis, left knee (principal); M25.562 Pain in left knee; Z96.652 Presence of left artificial knee joint; G89.18 Other acute postprocedural pain
CPT/HCPCS: 27447; C1776; 76942; 97110; 97162; 97530; NC; G0378; J0690; J1100; J1885; J2250; J2405

== ENCOUNTER 2019-05-16 15:32 | Outpatient (CLI) | payer MEDICAID, SELFPAY ==
--- NOTE | 2019-05-16 15:50 | DI.RAD_ITS ---
EXAM: XR STANDING ALIGNMENT CLINICAL HISTORY: 1ST POST OP COMPARISON: XR STANDING ALIGNMENT from 04/24/2019 FINDINGS: AP views of the lower extremities were obtained using standing alignment protocol. Mild degenerative changes of SI joints and moderate degenerative changes of both hips are noted. There is a total kne e joint replacement in position on the left. There are marked degenerative changes involving medial tibiofemoral joint on the right.
--- NOTE | 2019-05-16 15:52 | DI.RAD_ITS ---
EXAM: XR KNEE LT 1V CLINICAL HISTORY: 1ST POST OP TECHNIQUE: COMPARISON: from 06/05/2017 FINDINGS: Single lateral view was obtained and shows total knee joint replacement in position. Components appe ar well seated. No other significant bony abnormality seen. IMPRESSION:
== END 2019-05-16 15:52 ==
PROVIDERS: PCP Family Medicine; Visit Provider Student in an Organized Health Care Education/Training Program
DX: Z96.652 Presence of left artificial knee joint (principal); Z47.1 Aftercare following joint replacement surgery; M53.3 Sacrococcygeal disorders, not elsewhere classified; M16.0 Bilateral primary osteoarthritis of hip; M17.11 Unilateral primary osteoarthritis, right knee
CPT/HCPCS: 73560; 77073

== ENCOUNTER 2019-11-27 02:05 | Outpatient (CLI) | payer MEDICAID, SELFPAY ==
--- NOTE | 2019-11-27 12:41 | DI.MAMMO_ITS ---
EXAM: MG MAMMO SCREENING CLINICAL HISTORY: screening, Z12.31 TECHNIQUE: Bilateral full field digital CC and MLO mammographic images were obtained with 3D tomosyn thesis and utilizing computer aided detection (CAD). COMPARISON: Available for comparison. FINDINGS: Masses/Architectural Distortion: There is a small asymmetric density in the central upper left breast seen on the mediolateral oblique view. Microcalcifications: No suspicious pleomorphic-type are seen. Skin Thickening/Nipple Retraction: None. IMPRESSION: 1. Small asymmetric density in the upper central left breast seen on the mediolateral oblique view. 2. Further evaluation with spot compression view and ultrasound is recommended. BI-RADS Category 0 - Assessment Incomplete: Need additional imaging evaluation Breast Density - Category A - Almost entirely fatty A negative radiographic report should not delay biopsy if a dominant or clinically suspicious mass is present. Up to ten percent of cancers are not identified on mammography. A negative report may reinforce clinical impression. Adenosis and dense breasts may obscure an underlying neoplasm. False positive reports average 6 to 10%. Patient will receive a letter notifying them of these results.
== END 2019-11-27 02:25 ==
PROVIDERS: PCP Family Medicine; Visit Provider Family Medicine
DX: Z12.31 Encounter for screening mammogram for malignant neoplasm of breast (principal); R92.8 Other abnormal and inconclusive findings on diagnostic imaging of breast
CPT/HCPCS: 77063; 77067

== ENCOUNTER 2019-12-05 00:20 | Outpatient (CLI) | payer MEDICAID, SELFPAY ==
--- NOTE | 2019-12-05 | DI.MAMMO_ITS ---
EXAM: MG MAMMO SCREEN CALL BACK UNI CLINICAL HISTORY: F/U MAMMO, SMALL ASYMMETRIC DENSITY TECHNIQUE: Spot compression views including C- View and tomographic imaging were performed. COMPARISON: 2010 through 2018. 27 November 2019. FINDINGS: Spot compression MLO view with tomography was performed for a new asymmetric density in the central s uperior left breast. No suspicious masses or suspicious microcalcifications are seen. No persistent abnormality is seen on the additional views performed. The findings are consistent wit h overlying fibroglandular tissue. There has been no significant change from prior exams. IMPRESSION: BI-RADS Category 1, Negative Mammogram. Yearly screening mammography is recommended. Breast Density - Category A - Almost entirely fatty
== END 2019-12-05 00:40 ==
PROVIDERS: PCP Family Medicine; Visit Provider Family Medicine
DX: Z12.31 Encounter for screening mammogram for malignant neoplasm of breast (principal); R92.8 Other abnormal and inconclusive findings on diagnostic imaging of breast; N64.59 Other signs and symptoms in breast
CPT/HCPCS: 77063; 77067

== ENCOUNTER 2020-05-04 10:11 | Outpatient (CLI) | payer MEDICAID, SELFPAY ==
--- NOTE | 2020-05-04 08:45 | DI.RAD_ITS ---
EXAM: XR KNEE LT 2V AP,LAT CLINICAL HISTORY: annual f/u. TECHNIQUE: 2D digital imaging was performed. COMPARISON: MR MRI L LOWER JOINT WO CONT from 08/14/2015 CR from 06/05/2017 CR XR KNEE LT 1V from 05/16/2019 FINDINGS: AP and lateral views compared to April 2019 and May 2017. Position alignment of the component s of the prosthesis remain satisfactory. No fracture or loosening no radiographic evidence of osteom yelitis. Incidentally noted is an intramedullary bone lesion at the diaphysis-metaphysis junction which has th e appearance of a probable enchondroma and is been described on prior MRI study of July 2015. IMPRESSION: Satisfactory appearance of the prosthesis components. Enchondroma again evident in the distal femur. DATA REPOSITORY: RADIATION DOSE DELIVERED:
== END 2020-05-04 10:31 ==
PROVIDERS: PCP Family Medicine; Referring Provider Family Medicine; Visit Provider Student in an Organized Health Care Education/Training Program
DX: Z96.652 Presence of left artificial knee joint (principal)
CPT/HCPCS: 73560

== ENCOUNTER 2020-12-10 02:02 | Outpatient (CLI) | payer MEDICAID, SELFPAY ==
--- NOTE | 2020-12-10 06:49 | DI.MAMMO_ITS ---
Exam(s) MAMMO SCREENING EXAM: MAMMO SCREENING CLINICAL HISTORY: screening, Z12.39. TECHNIQUE: Bilateral full field digital CC and MLO mammographic images were obtained with 3D tomosyn thesis and utilizing computer aided detection (CAD). COMPARISON: Prior mammograms dating back to 2011, the most recent being November 2019. Family history. Her sister was diagnosed with breast cancer, apparently in her 50s. FINDINGS: There are no new spiculated masses nor malignant appearing microcalcification groups. Benign-appearing microcalcifications are noted. There is no significant architectural distortion nor skin thickening-retraction. IMPRESSION: No radiographic evidence of malignancy. BI-RADS Category 1 - Negative Breast Density - Category A - Almost entirely fatty Breast density Category C or D implies that the patient has dense breast tissue. Dense breast tissue can make it harder to find cancer on a mammogram. Dense breast tissue is also associated with an incr eased risk of breast cancer. This information about the result of the mammogram report was provided to the patient to raise their awareness. Use this report when you speak with the patient about their risks for breast cancer, which includes their family history. At that time, you may recommend additional screening tests (Ultrasoun d or MRI) as these tests may add significant information. A negative radiographic report should not delay biopsy if a dominant or clinically suspicious mass is present. Up to ten percent of cancers are not identified on mammography. A negative report may reinforce clinical impression. Adenosis and dense breasts may obscure an underlying neoplasm. False positive reports average 6 to 10%. Patient will receive a letter notifying them of these results.
== END 2020-12-10 02:22 ==
PROVIDERS: PCP Nurse Practitioner Family; Visit Provider Nurse Practitioner Family
DX: Z12.31 Encounter for screening mammogram for malignant neoplasm of breast (principal)
CPT/HCPCS: 77063; 77067

== ENCOUNTER 2020-12-10 03:32 | Outpatient (CLI) | payer MEDICAID, SELFPAY ==
[2020-12-10 13:50] LABS: Hemoglobin A1C 4.7 % (<5.7)
[2020-12-11 21:50] LABS: Calculated LDL 131 mg/dL (<100); Cholesterol 206 mg/dL (<200); HDL Cholesterol 60 mg/dL (40-60); Triglyceride 76 mg/dL (<150)
== END 2020-12-10 03:33 | disposition home or self-care (01) ==
LOC: LBO 03:32
PROVIDERS: PCP Nurse Practitioner Family; Visit Provider Nurse Practitioner Family
DX: Z13.220 Encounter for screening for lipoid disorders (principal); Z13.1 Encounter for screening for diabetes mellitus
CPT/HCPCS: 36415; 80061; 83036

== ENCOUNTER 2021-12-20 13:19 | Outpatient (REF) | payer MEDICAID, SELFPAY ==
--- NOTE | 2021-12-20 13:20 | VUL_PTH ---
PATIENT: Niharika Corea LOC: [facility] U#:[id number] AGE/SX: 61/F ROOM: RE12/20/[address]: Danielle Rodriguez DO : 1960 BED: DIS: 12/20/2021 SPEC #: [id number] RECD: 12/20/21 18:09 STATUS: PERICO RE #: [id number] AYAZ: 12/20/21 13:[address]: Danielle Rodriguez DEPT: Surgical Specimen RECD BY: Dee Dunham ENTERED: 12/20/21 18:10 SP TYPE: VUL OTHR DR: Gene Camarillo, DAREK Tissues: 1 - VULVA BIOPSY Procedures: GROSS AND MICRO LEVEL 4 Comments: [id number]
== END 2021-12-20 13:20 | disposition home or self-care (01) ==
LOC: LBN 13:19
PROVIDERS: PCP Nurse Practitioner Family; Visit Provider Obstetrics & Gynecology
DX: N90.4 Leukoplakia of vulva (principal); N90.89 Other specified noninflammatory disorders of vulva and perineum
CPT/HCPCS: 88305

== ENCOUNTER 2022-10-10 01:08 | Outpatient (CLI) | payer MEDICAID, SELFPAY ==
--- NOTE | 2022-10-10 06:45 | DI.MAMMO_ITS ---
Exam(s) MAMMO SCREENING EXAM: MAMMO SCREENING CLINICAL HISTORY: screening,z12.39 TECHNIQUE: Mammograms were interpreted according to the usual protocol including computer analysis w [employer] CAD system, tomosynthesis and C-view imaging. COMPARISON: 2013 through 2020 FINDINGS: The breasts are composed of mainly fatty density , Breast Density category A. No suspicious masses or suspicious microcalcifications are seen. No skin thickening or abnormal axillary lymph nodes are seen. There has been no significant change from prior exams. IMPRESSION: BI-RADS Category 1, Negative mammogram Yearly screening mammography is recommended. Breast Density - Category A, fatty density. A negative radiographic report should not delay biopsy if a dominant or clinically suspicious mass is present. Up to ten percent of cancers are not identified on mammography. A negative report may reinforce clinical impression. Adenosis and dense breasts may obscure an underlying neoplasm. False positive reports average 6 to 10%. Patient will receive a letter notifying them of these results.
== END 2022-10-10 01:28 ==
LOC: DI 01:08
PROVIDERS: PCP Nurse Practitioner Family; Visit Provider Obstetrics & Gynecology
DX: Z12.31 Encounter for screening mammogram for malignant neoplasm of breast (principal)
CPT/HCPCS: 77063; 77067

== ENCOUNTER 2024-01-23 15:04 | Outpatient (REF) | payer OTHER, SELFPAY ==
--- NOTE | 2024-01-23 15:00 | PAPFT_PTH ---
PATIENT: Niharika Corea LOC: [facility] U#:[id number] AGE/SX: 63/F ROOM: RE01/23/[address]: Danielle Rodriguez DO : 1960 BED: DIS: 01/23/2024 SPEC #: [id number] RECD: 01/23/24 17:22 STATUS: PERICO REQ #: [id number] AYAZ: 01/23/24 15:[address]: Danielle Rodriguez DEPT: [facility] Cytology RECD BY: Dee Dunham ENTERED: 01/23/24 17:22 SP TYPE: PAPFT OTHR DR: Gene Camarillo NP Tissues: 1 - CX/ENDOCX FOR PAP SMEARS Procedures: PAP THIN PREP/UVM Screening HPV DNA PROBE Comments: [id number] (HPV 16 & 18/45)
== END 2024-01-23 15:05 | disposition home or self-care (01) ==
LOC: LBN 15:04
PROVIDERS: PCP Nurse Practitioner Family; Visit Provider Obstetrics & Gynecology
DX: Z11.51 Encounter for screening for human papillomavirus (HPV) (principal); Z01.419 Encounter for gynecological examination (general) (routine) without abnormal findings
CPT/HCPCS: 88142; 87624

== ENCOUNTER 2024-01-31 00:43 | Outpatient (CLI) | payer OTHER, SELFPAY ==
--- NOTE | 2024-01-31 12:15 | DI.MAMMO_ITS ---
Exam(s) MAMMO SCREENING EXAM: MAMMO SCREENING CLINICAL HISTORY: screening TECHNIQUE: Bilateral full field digital CC and MLO mammographic images were obtained with 3D tomosyn thesis and utilizing computer aided detection (CAD). COMPARISON: Available for comparison. FINDINGS: Masses/Architectural Distortion: None seen. Microcalcifications: No suspicious pleomorphic-type are seen. Skin Thickening/Nipple Retraction: None. IMPRESSION: 1. No significant interval change with no specific features of malignancy noted. 2. Unless there is more urgent need, screening mammography is recommended, as per [employer] guidelines. BI-RADS Category 1 - Negative Breast Density - Category A - Almost entirely fatty Breast density category C or D implies that the patient has dense breast tissue. Dense breast tissue is very common and is not abnormal but dense breast tissue can make it harder to find cancer on a ma mmogram. Also, dense breast tissue may increase their breast cancer risk. This information about the result of the mammogram report was provided to the patient to raise their awareness. Use this report when you speak with the patient about their risks for breast cancer, which includes their family hist ory. At that time, you may recommend for more screening tests (Ultrasound or MRI) as they might be us eful based on their risk. A negative radiographic report should not delay biopsy if a dominant or clinically suspicious mass is present. Up to ten percent of cancers are not identified on mammography. A negative report may reinforce clinical impression. Adenosis and dense breasts may obscure an underlying neoplasm. False positive reports average 6 to 10%. Patient will receive a letter notifying them of these results.
== END 2024-01-31 01:03 ==
LOC: DI 00:44
PROVIDERS: PCP Nurse Practitioner Family; Visit Provider Obstetrics & Gynecology
DX: Z12.31 Encounter for screening mammogram for malignant neoplasm of breast (principal)
CPT/HCPCS: 77063; 77067

== ENCOUNTER 2024-08-13 10:45 | Emergency (ER) | payer OTHER, SELFPAY ==
--- NOTE | 2024-08-13 10:45 | RT.EKG_ITS ---
APPROVED REPORT Exam: Resting ECG Reason for Exam: dizzy Patient Location: E HR:79 bpm ECG Measurements Heart Rate 79 AXIS RI 166 P 58 QRSd 84 QRS 43 QT 398 T 60 QTc 457 Conclusion Sinus rhythm...normal P axis, V-rate 60- 99 Low voltage, precordial leads...precordial leads <1.0mV Consider anterior infarct...Q >30mS in V2-V5 No STEMI
[2024-08-13 10:52] VITALS: BP 154/80; PULSE 89; RESP 14; TEMP 36.7; O2SAT 98
--- NOTE | 2024-08-13 11:00 | DI.CT_ITS ---
Exam(s) CT HEAD CERVICAL SPINE WO EXAM: CT HEAD CERVICAL SPINE WO CLINICAL HISTORY: Fall, LOC. TECHNIQUE: Imaging Protocol: Axial computed tomography images with coronal and sagittal reformatted images were created and reviewed COMPARISON: No exams were available for comparison FINDINGS: Head CT Ventricles and Extra axial spaces: Normal in size and morphology for the patient's age. Hemorrhage: None. Cerebral parenchyma: No evidence of mass or acute infarct. Midline shift: None. Brainstem/Cerebellum: Normal. Calvarium: Normal. Visualized Paranasal sinuses/Mastoids: Clear. Soft tissues: Unremarkable. Cervical Spine CT BONES: Vertebral body heights are maintained. Alignment is normal. There is no evidence of acute frac ture. Degenerative disc changes and facet degenerative changes are seen . SOFT TISSUES: No paraspinal hematoma. The airway appears intact. No pneumothorax is seen at the lung apices. IMPRESSION: Head CT: No acute abnormality. C-spine CT: Mild degenerative changes, no acute abnormality. RADIATION DOSE DELIVERED: 1,284.89mGy.cm Total DLP DATA REPOSITORY: All CT scans at this facility are submitted to the National Radiology Data Registry (NRDR) Dose Index Registry (DIR) with the [employer] (ACR). RADIATION OPTIMIZATION: All CT scans at this facility use at least one of these dose optimization te chniques: automated exposure control; mA and/or kV adjustment per patient size (includes targeted exa ms where dose is matched to clinical indication); or iterative reconstruction.
[2024-08-13] MEDS: Lidocaine/Epinephri/Tetracaine Topical Gel 3 ML TP (11:09)
--- NOTE | 2024-08-13 11:31 | ED.GENADUL_ITS ---
Discharge Plan Disposition Patient Disposition: Home Condition: Stable Discharge Details Clinical Impression: Laceration of ear, external, left, Head injury, acute, with loss of consciousness Primary Care Provider: Gene Camarillo ED Provider: Ama Castro Home Meds and New Rx's Prescriptions: No Action nystatin-triamcinolone 100,000-0.1 unit/gram-% ointment 1 applic topical BID Qty: 60 1RF Women's Multivitamin 18 mg-400 mcg- 500 mg-50 mcg tablet 1 tab PO DAILY trazodone 50 mg tablet 25 - 50 mg PO HS PRN (Reason: insomnia) Qty: 60 3RF Rx Instructions: at hs if needed for insomnia Discharge Instructions Instructions: Taking care of cuts, scrapes, and puncture wounds, Head Injury Observation (DC), Laceration Repair With Glue ED Additional Instructions: CT of your brain and neck are within normal limits. No evidence of broken bones or bleeding in the brain. The laceration to the left side of your ear was repaired with skin glue. This should slough off on its own in approximately 4 to 6 days. Do not pick at or scrub the area. You may gingerly apply an ice pack to the sore area of your left side of your head. After 12 to 24 hours you may wash with running soap and water as normal. Please take Tylenol or Ibuprofen with food every 4-6 hours as needed for pain and swelling. Please return for any signs of infection including increased redness, red streaks drainage swelling or warmth, confusion vomiting blurry vision or concerns. You will be sore for the next couple of days. Referrals: Gene Camarillo, [employer] LO[employer] ORIGINATOR [Primary Care Provider] - 5 days HPI General Mode of arrival: ambulatory . Date/Time Provider Initiated Documentation: 08/13/24 11:02 . Limitations to Documentation: no limitations . Information obtained by: patient, family, RN notes reviewed and old records reviewed . HPI Narrative: 64-year-old female presents to the ER after a head injury and a fall. Patient reports that she was kicking someone into a wood stove lost her balance fell backwards hitting some workout equipment. She does have a laceration to her left posterior ear, bleeding is controlled at this time. Unknown LOC. She is also complaining of some neck pain and posterior left shoulder pain. He denies any back pain. She is ambulatory upon arrival. She does not take any blood thinners or aspirin. She is alert and oriented x 4. She reports some dizziness initially but has resolved. She did take an ibuprofen prior to arrival. Related Data Home Medications ?Medication ?Instructions ?Recorded ?Confirmed [id number] 18 mg-FA 400 1 tab PO DAILY 11/10/21 08/13/24 mcg-calcium 500 mg-vit K 50 mcg tablet (Women's Multivitamin) nystatin-triamcinolone 100,000 1 applic topical BID #60 grams 07/04/23 08/13/24 unit/gram-0.1 % topical ointment trazodone 50 mg tablet 25 - 50 mg (0.5 - 1 x 50 mg) PO HS 08/09/24 08/13/24 PRN insomnia #60 tabs Previous Rx's ?Medication ?Instructions ?Recorded nystatin-triamcinolone 100,000 1 applic topical BID #60 grams 07/04/23 unit/gram-0.1 % topical ointment trazodone 50 mg tablet 25 - 50 mg (0.5 - 1 x 50 mg) PO HS 08/09/24 PRN insomnia #60 tabs Allergies Allergy/AdvReac Type Severity Reaction Status Date / Time No Known Allergies Allergy Verified 08/13/24 10:59 General Stated Complaint: HeadInjury JOCELYN: 3 Review of Systems All systems reviewed & are unremarkable except as noted in HPI and below Constitutional Constitutional: Reports as per HPI ENT Ears, Nose, Mouth, and Throat: Reports dizziness and Reports otalgia (Small laceration at the back of her ear) Cardiovascular Cardiovascular: Denies syncope Neurologic Neurologic: Reports as per HPI, Denies abnormal speech, Denies confusion, Reports dizziness, Denies syncope, Denies memory loss and Denies seizure-like activity Psychiatric Psychiatric: Denies confusion and Denies memory loss Exam Narrative Exam Narrative: General: Well Developed, Awake and Alert, conversant. Skin: Warm and Dry HEENT: Head: No palpable deformities, Normocephalic Eyes: Pupils PERRLA, EOM's intact. No periorbital eccymosis or step off Ears: Canal patent. Tympanic membranes are clear . No avendano's sign, no hemptympanum. Does have a laceration to the posterior aspect of her left ear, bleeding controlled. Also has a small laceration which is scabbed over to the external auricle. See diagram Nose/Face: Atraumatic. Facial bones nontender to palpation and stable with manipulation. Mouth/Throat: No intraoral trauma. Teeth and mandible are intact. Neck: No midline tenderness, no step off, no deformity to palpation of C-spine. Trachea midline. Chest: No surface trauma. Nontender without crepitus or deformity. Lungs clear to ausculatation bilaterally. Neuro: ANO x4, GCS 15, cranial nerves II through XII intact. Motor and sensory exam nonfocal. Reflexes are symmetric. [facility] Head images: 2 1. Approximately 1-1/2 cm laceration, bleeding controlled. Outer ear/TM images: 2 1. Small laceration, scabbed over no bleeding. Course Vital Signs Vital signs: Vital Signs Temperature 36.7 C 08/13/24 10:52 Pulse 89 08/13/24 10:52 Respiratory Rate 14 08/13/24 10:52 Blood Pressure 154/80 H 08/13/24 10:52 Pulse Oximetry 98 08/13/24 10:52 Temperature 36.7 C 08/13/24 10:52 Temperature Source Oral 08/13/24 10:52 Pulse 89 08/13/24 10:52 Respiratory Rate 14 08/13/24 10:52 Blood Pressure 154/80 H 08/13/24 10:52 Blood Pressure Position Sitting 08/13/24 10:52 Pulse Oximetry 98 08/13/24 10:52 Oxygen Delivery Method Room Air 08/13/24 10:52 Oxygen Flow Rate 0 08/13/24 10:52 Pain Level 7 08/13/24 10:52 Medical Decision Making 64-year-old female presents to the ER after a head injury and a fall. Patient reports that she was kicking someone into a wood stove lost her balance fell backwards hitting some workout equipment. She does have a laceration to her left posterior ear, bleeding is controlled at this time. Unknown LOC. She is also complaining of some neck pain and posterior left shoulder pain. He denies any back pain. She is ambulatory upon arrival. She does not take any blood thinners or aspirin. She is alert and oriented x 4. She reports some dizziness initially but has resolved. She did take an ibuprofen prior to arrival. Patient placed in a c-collar in triage. Let applied, CT head and C-spine ordered. After looking at the laceration I do suspect that we can do Dermabond. Laceration cleaned with saline. Tissue adhesive Dermabond applied wound well- approximated. Discussed home care there is some ecchymosis and contusion happening. I did discuss that that she can expect some more bruising. Discussed signs of infection, confusion vomiting blurry vision or any concerns to return to the ER they verbalized understanding. Discussed negative CT results with patient and family. Discussed home care strict return instructions, verbalized understanding. This text was generated using Bjondation system, please disregard any oddities of phrase or misspellings. Imaging Data Radiologic Study: Imaging: CT Scan Radiologist's impression: CT HEAD CERVICAL SPINE WO EXAM: CT HEAD CERVICAL SPINE WO CLINICAL HISTORY: Fall, LOC. TECHNIQUE: Imaging Protocol: Axial computed tomography images with coronal and sagittal reformatted images were created and reviewed COMPARISON: No exams were available for comparison FINDINGS: Head CT Ventricles and Extra axial spaces: Normal in size and morphology for the patient's age. Hemorrhage: None. Cerebral parenchyma: No evidence of mass or acute infarct. Midline shift: None. Brainstem/Cerebellum: Normal. Calvarium: Normal. Visualized Paranasal sinuses/Mastoids: Clear. Soft tissues: Unremarkable. Cervical Spine CT BONES: Vertebral body heights are maintained. Alignment is normal. There is no evidence of acute fracture. Degenerative disc changes and facet degenerative changes are seen . SOFT TISSUES: No paraspinal hematoma. The airway appears intact. No pneumothorax is seen at the lung apices. IMPRESSION: Head CT: No acute abnormality. C-spine CT: Mild degenerative changes, no acute abnormality. Quality:SDOH Health Related Social Needs: 2 No Data to Display PFSH All Active Problems (Updated 08/13/24 @ 12:04 by Ama Castro NP) Head injury, acute, with loss of consciousness (Acute) Laceration of ear, external, left (Acute) Vulvar lesion (Acute) Excess sun exposure (Acute) Vaginal lesion (Acute) Diverticulitis large intestine w/o perforation or abscess w/bleeding (Acute 04/05/11) 04/08 RECURRENT, SIGMOID RESECTION Mrecw-Cgbyybgyx-Cjmiu pattern (Acute) Ablation 1992 Diverticulosis (Chronic) Medical History Family history of colon cancer (06/27/14) brother, rectal cancer in his 50's Family history of breast cancer in sister (10/24/17) Chest pain (04/19/13) [facility] 04/10 palpitations 06/26/13; [facility]G STRESS TEST Chest pressure Surgical History 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 Sister Breast cancer Cervical cancer Brother , 59 Colon cancer Maternal Grandfather , 80+ TB (tuberculosis) Lung cancer Paternal Grandfather , 76 Cancer Maternal Grandmother , 80+ Diabetes Cancer Paternal Grandmother Lung cancer Son No problems noted. Son No problems noted. Son No problems noted. Brother , 13 No problems noted. 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 - [employer] Pets and animals: Yes Pets and animals: dog(s) Sexually active: Yes Do you think of yourself as: straight/heterosexual Other: - Francisco J What is your relationship status?: How often do you talk on the phone with friends or family?: three or more times per week How often do you get together with friends or relatives?: three or more times per week How often do you attend baptism or hoahaoism services?: 4 or more times per year Do you belong to any clubs or organized social groups?: no Panel score (0-1 are the most socially isolated patients): 3 What type of physical activity do you participate in: walking Duration: 15-30 minutes/day Frequency: 3-4 times per week Elizabeth/Mosque: Spiritism Special elizabeth needs: No Seatbelt use: always Helmet use: Yes Helmet use: always Drive intox or ride w/intox student 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 driver: No Do you feel safe at home: Yes Do you feel safe in your relationship?: Yes History History 2 3 Para 3 Hx # Term Pregnancies 3 Multiple births Hx # Pregnancies Ectopic pregnancies AB induced Hx Number of Living Children 3 AB spontaneous PAWSS Have you Been Recently Intoxicated or Drunk Within the Last 30 days?: No Have you Ever Experienced Previous Episodes of Alcohol Withdrawal?: No Have you ever Experienced Withdrawal Seizures?: No Have you ever Experienced Delirium Tremens(DT)s?: No Have you ever undergone Alcohol Rehabilitation Treatment (i.e, inpt ot outpatient treatment programs)?: No Have you ever Experienced Blackouts?: No Have you ever Combined Alcohol with other Downers within the last 90 days?: No Have you ever Combined Alcohol with any other Substance of Abuse during the last 90 days?: No Positive Blood Alcohol level on Presentation? [PCS.BAL]: No Evidence of Increased Autonomic Activity (i.e. HR>120, tremor, sweating, agitation, nausea)?: No Result: 0
[2024-08-13 12:21] VITALS: BP 148/86; PULSE 80; RESP 14; TEMP 36.6; O2SAT 100
== END 2024-08-13 12:23 | disposition home or self-care (01) ==
PROVIDERS: Emergency Provider Registered Nurse Emergency; PCP Nurse Practitioner Family
DX: S06.891A Other specified intracranial injury with loss of consciousness of 30 minutes or less, initial encounter (principal); S01.312A Laceration without foreign body of left ear, initial encounter; W01.198A Fall on same level from slipping, tripping and stumbling with subsequent striking against other object, initial encounter; Y93.89 Activity, other specified; Y92.018 Other place in single-family (private) house as the place of occurrence of the external cause
CPT/HCPCS: 93005; 99284; 70450; 72125; 93010

== ENCOUNTER 2024-11-15 08:15 | Day surgery (SDC) | payer OTHER, SELFPAY ==
--- NOTE | 2024-11-14 20:02 | W.PM.DSUDISC ---
Date of service: 11/15/24 Discharge Plan Disposition Patient Disposition: Home Condition: Good Discharge Details Reason For Visit: Screening colonoscopy Attending Provider: Jet Alex Primary Care Provider: Yumiko Mueller Home Meds and New Rx's Prescriptions: Continued nystatin-triamcinolone 100,000-0.1 unit/gram-% ointment 1 applic topical BID Qty: 60 1RF Women's Multivitamin 18 mg-400 mcg- 500 mg-50 mcg tablet 1 tab PO DAILY trazodone 50 mg tablet 25 - 50 mg PO HS PRN (Reason: insomnia) Qty: 60 3RF Rx Instructions: at hs if needed for insomnia Discontinued bisacodyl [Dulcolax (bisacodyl)] 5 mg tablet,delayed release (DR/EC) 5 mg PO ONCE Qty: 4 0RF Rx Instructions: Take per colonoscopy instructions provided by ordering providers office polyethylene glycol 3350 17 gram/dose powder 17 g PO ONCE Qty: 238 0RF Rx Instructions: Take per colonoscopy instructions provided by ordering providers office Discharge Instructions Additional Instructions: Niharika, it was great meeting you today, and hope you are comfortable through the procedure. Everything went very smoothly. Your prep was outstanding and I could see everything fine. There are just a few scattered diverticula here and there, but certainly nothing to worry about. I did not see any signs of tumors or polyps today. Based on your family history, I recommend a 5-year interval for your next screening colonoscopy. If you have any questions at all, please do not hesitate to call or ask at any time. 1. If tolerated, consume a soft, low fiber diet for 1-2 days. 2[address] Do not drive, drink alcohol, operate machinery, make critical decisions, or do activities that require coordination or balance for 24 hours. 3. Because air was put into your colon during the procedure, expelling air from your rectum (passing gas or farting) is normal. 4. You may not have a bowel movement for 1-3 days because of the colonoscopy prep. This is normal. 5. Go directly to the emergency room if you notice any of the following: Develop chills (warm to touch), or if you have a thermometer and your temperature is above 101 Difficulty breathing or difficultly swallowing Persistent vomiting Severe abdominal pain, other than gas cramps Severe chest pain Black, tarry stools Any bleeding ? exceeding one tablespoon 6. Call your physician if the site where your intravenous was started becomes red, swollen, painful, and warm to touch. 7. Your physician has reviewed your pre-procedure medications. Please continue to take those medications as previously ordered. You will be given specific information/education regarding any changes to your medications before leaving. Stand Alone Forms: Anesthesia Discharge InstBandar Cardoza (DSU) Activity:: Activity as Tolerated Diet:: As Tolerated Discharge Orders Discharge Orders: Discharge Order (Routine); Ordered 11/14/24 Ordered By: Jet Alex DS: Diagnosis Discharge Diagnosis (1) Encounter for screening colonoscopy: Status: Acute Asessment and Plan: Negative screening colonoscopy; based on family history recommend 5-year screening interval
--- NOTE | 2024-11-14 20:03 | W.COLOREPORT ---
Date of service: 11/15/24 Time of Service: 09:56 Colonoscopy Report Date of procedure: 11/15/24 Pre-op diagnosis general: screening colonoscopy Post-op diagnosis procedure note: other (Negative screening colonoscopy) Procedure: colonoscopy Surgeon: Jet Alex Anesthesia Type: General:No Airway Estimated blood loss (mL): 0 Pathology: none sent Complications: None Disposition: same day Indications: Niharika is a 64 year old woman who has undergone sigmoid colectomy for diverticulitits who needs her next screening colonoscopy Prep: Miralax/Dulcolax Procedure Start Time: :41 Procedure End Time: 09:49 Retraction Time: 6 Findings: Negative screening colonoscopy Procedure Description: After the induction of anesthesia, and with the patient in left lateral decubitus position, I began by performing an external anorectal exam.? Perineum and skin were normal, as was the anal verge.? There was no evidence of external hemorrhoids.? Next, I performed a digital rectal exam.? I did not appreciate any abnormal findings.? Next, I advanced a colonoscope into the rectal vault.? I performed retroflexion.? This appeared normal.? Using insufflation, I then advanced the colonoscope beyond the rectal folds and into the sigmoid colon before advancing towards the cecum.? The quality of the prep was excellent.? The scope was noted to be in the cecum by identification of the ileocecal valve and appendiceal orifice.? I then began withdrawing the colonoscope using repeated irrigation as necessary for full evaluation of the colonic mucosa. There are a few scattered diverticula mostly on the left side. There is a colorectal anastomosis. It is widely patent, and healthy appearing. There is a small rectal stump which looks totally normal. Once the scope was withdrawn to the level of the rectum, great care was taken to examine portions of the rectal folds.? Finally, the scope was withdrawn and the patient was brought to the same-day surgery recovery unit as the anesthetic wore off. ?The findings and instructions were shared with the patient prior to discharge. [place] Bowel Prep [place] Bowel Prep Right Colon: 3 Left Colon: 3 Transverse Colon: 3 Total Score: 9
[2024-11-15 08:34] VITALS: BP 147/88; PULSE 81; RESP 18; TEMP 36.1; O2SAT 99
[2024-11-15] MEDS: Lactated Ringers 1,000 ML 80 ML IV (08:47)
--- NOTE | 2024-11-15 08:52 | ANES.PREOP_ITS ---
General Info Date of Service Date Performed: 11/15/24 Height: 5 ft 3 in Weight: 93.2 kg Body Mass Index (BMI): 36.3 Surgical Procedure: Operation Date: 11/15/24 09:50 Proposed Procedure Side Surgeon p Colonoscopy Jet Alex MD Actual Procedure Side Surgeon p Colonoscopy Jet Alex MD Pre-Op Diagnosis Post-Op Diagnosis family hx of colon CA hx of diverticulosis Meds Allergies and Home Medications Allergies Allergy/AdvReac Type Severity Reaction Status Date / Time No Known Allergies Allergy Verified 11/15/24 08:33 Home Medication ?Medication ?Instructions ?Recorded [id number] 18 mg-FA 400 1 tab PO DAILY 11/10/21 mcg-calcium 500 mg-vit K 50 mcg tablet (Women's Multivitamin) nystatin-triamcinolone 100,000 1 applic topical BID #6 0 grams 07/04/23 unit/gram-0.1 % topical ointment trazodone 50 mg tablet 25 - 50 mg (0.5 - 1 x 50 mg) PO HS 08/09/24 PRN insomnia #60 tabs Current Visit Medications: Current Medications Generic Name Dose Route Start Last Admin Trade Name Freq PRN Reason Stop Dose Admin Ringer's Solution 1,000 mls @ 80 mls/hr 11/15/24 06:00 11/15/24 08:47 IV 11/15/24 23:59 80 mls/hr INFUSION THANH Administration IV Miscellaneous Supplies 1 each 11/15/24 06:00 Iv Access IV 11/15/24 23:59 DIRECTED THANH Ondansetron HCl 4 mg 11/14/24 20:05 Ondansetron 4 Mg/2 Ml Vial IVP 12/14/24 20:04 Q4H PRN PRN Nausea / Vomiting Sodium Chloride 0 ml 11/15/24 06:00 Normal Saline Flush 10 Ml Syr IV 11/15/24 23:59 PRN PRN Sodium Chloride 0 ml 11/15/24 06:00 Normal Saline 10 Ml Vial IJ 11/15/24 23:59 DIRECTED PRN Sterile Water 0 ml 11/15/24 06:00 Water,Injection,Sterile 10 Ml Vial IJ 11/15/24 23:59 DIRECTED PRN PFSH Active Problems Active Problems: Problem Status Onset Code Encounter for screening colonoscopy Acute Z12.11 Vulvar lesion Acute N90.89 Excess sun exposure Acute X32.XXXA Vaginal lesion Acute N89.8 Diverticulitis large intestine w/o perforation or abscess w/bleeding Acute 04/05/11 K57.33 Ibqto-Kaeqrnckt-Vbdtt pattern Acute I45.6 Diverticulosis Chronic K57.90 Medical History Medical History Family history of colon cancer (06/27/14) brother, rectal cancer in his 50's Family history of breast cancer in sister (10/24/17) Chest pain (04/19/13) [facility] 04/10 palpitations 06/26/13; [facility] NEG STRESS TEST Chest pressure Surgical History Surgical History 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) H/O arthroscopy of left knee History of bilateral ligation of fallopian tubes Ligation of fallopian tube Sigmoidoscopy (04/05/11) STRESS TEST (06/26/13) [facility]; NEGATIVE Colectomy (04/05/11) Appendectomy Tobacco Smoking/Tobacco Use Status: Never Passive smoking exposure: No Second hand exposure: Yes Alcohol Alcohol Intake: current Alcohol intake frequency: 0-2 drinks per day Alcohol type: beer Substance Use Substance use: Never Substance use type: does not use Details: Reports recently started smoking marijuana to help sleep due to knee pain Prental History History 3 Para 3 Hx # Term Pregnancies 3 Multiple births Hx # Pregnancies Ectopic pregnancies AB induced Hx Number of Living Children 3 AB spontaneous Vital Signs and Lab Results Vital Signs Most Recent Vital Signs in EMR: Most Recent Vital Signs Temp Pulse Resp BP Pulse Ox 36.1 C L 81 18 147/88 H 99 11/15/24 08:34 11/15/24 08:34 11/15/24 08:34 11/15/24 08:34 11/15/24 08:34 Imaging and Studies Imaging and Studies Study information below may be from another EMR and interpreted by another provider. Please see original notes in EMR for more complete details. EKG Summary: Reviewed. Anesthesia Assessment and Plan Anesthesia History Personal History: No History of Anesthesia Complications Family History: No Family History of Anesthesia Complications Exercise Tolerance Exercise Tolerance: Metabolic Equivalents>4 Pertinent Negatives Pertinent Negatives: No Symptoms of GERD, No Major Pulmonary Symptoms or Complaints and No History of CVA/TIA Cardiac & Pulmonary Exam Cardiac Exam: Normal S1/S2 Heart Sounds Pulmonary Exam: Clear Bilateral Breath Sounds Implantable Cardiac Device Does patient have a Pacemaker or an ICD?: No Airway Exam Known Difficult Airway: No Mallampati Class: 3 Mouth Opening: Normal (> 3cm) Thyromental Distance: Greater than 3 cm Neck Range of Motion: Full ROM Neck Circumference: Normal Teeth Condition: Normal Dentition ASA Classification ASA Score: ASA 2 Emergency Case?: No NPO Status NPO Status: NPO Clears >2 hours, Solids >8 hours Anesthesia Plan Resuscitation Status: Full Code Anesthesia Technique: General Anesthesia Airway Planned: Natural Airway Monitors Used: Standard Monitors
[2024-11-15 08:54] VITALS: BMI 36.3
[2024-11-15 09:54] VITALS: BP 131/87; PULSE 80; RESP 16; TEMP 36.3; O2SAT 98
--- NOTE | 2024-11-15 10:00 | W.ANESPOSTOP ---
Postoperative Evaluation Date, Time and Location Date Performed: 11/15/24 Time Performed: 10:01 Patient Location: Day Surgery Unit Vital Signs Most Recent Imported Vital Signs: Most Recent Vital Signs Temp Pulse Resp BP Pulse Ox 36.3 C L 80 16 131/87 98 11/15/24 09:54 11/15/24 09:54 11/15/24 09:54 11/15/24 09:54 11/15/24 09:54 Pain Score Most Recent Pain Score: Most Recent Pain Score Pain Level 0 11/15/24 09:54 Assessment Mental Status: Awake (Alert & Oriented to Patient Baseline) Airway and Respiratory Function: Patent airway with normal (patient baseline) respiratory exam Cardiovascular Function: Hemodynamically Stable Hydration Status: Adequately Hydrated Nausea & Vomiting: No Nausea or Vomiting Pain: Pt. Denies Any Pain Peripheral Nerve Block: Patient did not receive a nerve block
[2024-11-15 10:23] VITALS: BP 148/87; PULSE 66; RESP 16; TEMP 36.1; O2SAT 100
== END 2024-11-15 10:29 | disposition home or self-care (01) ==
PROVIDERS: PCP Nurse Practitioner Family; Visit Provider Surgery
PROC: 0DJD8ZZ Inspection of Lower Intestinal Tract, Via Natural or Artificial Opening Endoscopic (ICD-10-PCS; CPT 45378; principal; 2024-11-15 09:45)
DX: Z12.11 Encounter for screening for malignant neoplasm of colon (principal); Z90.49 Acquired absence of other specified parts of digestive tract; K57.30 Diverticulosis of large intestine without perforation or abscess without bleeding
CPT/HCPCS: 45378; J2704

== ENCOUNTER 2025-03-10 02:08 | Outpatient (CLI) | payer OTHER, SELFPAY ==
--- NOTE | 2025-03-10 08:47 | DI.MAMMO_ITS ---
Exam(s) MAMMO SCREENING EXAM: MAMMO SCREENING CLINICAL HISTORY: screening TECHNIQUE: Mammograms were interpreted according to the usual protocol including computer analysis with CAD system, tomosynthesis and C-view imaging. COMPARISON: 2015 through 2023 FINDINGS: The breasts are composed of mainly fatty density , Breast Density category A. No suspicious masses or suspicious microcalcifications are seen. No skin thickening or abnormal axillary lymph nodes are seen. There has been no significant change from prior exams. IMPRESSION: BI-RADS Category 1, Negative mammogram Yearly screening mammography is recommended. Breast Density- Category A - The breast are almost entirely fatty. Breast density Category C or D implies that the patient has dense breast tissue. Dense breast tissue can make it harder to find cancer on a mammogram. Dense breast tissue is also associated with an increased risk of breast cancer. This information about the result of the mammogram report was provided to the patient to raise their awareness. Use this report when you speak with the patient about their risks for breast cancer, which includes their family history. At that time, you may recommend additional screening tests (Ultrasound or MRI) as these tests may add significant information. A negative radiographic report should not delay biopsy if a dominant or clinically suspicious mass is present. Up to ten percent of cancers are not identified on mammography. A negative report may reinforce clinical impression. Adenosis and dense breasts may obscure an underlying neoplasm. False positive reports average 6 to 10%. Patient will receive a letter notifying them of these results.
== END 2025-03-10 02:28 ==
LOC: DI 02:08
PROVIDERS: PCP Nurse Practitioner Family; Visit Provider Obstetrics & Gynecology
DX: Z12.31 Encounter for screening mammogram for malignant neoplasm of breast (principal); R92.313 Mammographic fatty tissue density, bilateral breasts
CPT/HCPCS: 77063; 77067